=== PATIENT | female | born 1945 | race Caucasian/White ===

== ENCOUNTER 2017-01-30 17:30 | Inpatient (IN) | payer MEDICARE, OTHER ==
[~2017-01-30] VITALS: Ht 154.9 cm; Wt 78.4 kg
[2017-01-30] MEDS ORDERED: ASPIRIN 325 MG TAB PO STA (17:55)
[2017-01-30] MEDS ORDERED: SOD CHLORIDE 0.9% 500 ML IV STA (17:55)
--- NOTE | 2017-01-30 17:57 | ERD ---
ER Documentation Chief Complaint Chief Complaint chest pain x 2 days, cardiac hx HPI This 71-year-old female comes in for sharp and pressure-like substernal nonradiating chest pain, shortness of breath palpitations for the last 2 days. She is feeling worse and worse and getting lightheadedness and weakness now. Has nausea but denies vomiting. Denies fevers and chills. ROS All systems reviewed and are negative except as per history of present illness. Allergies Allergies: Coded Allergies: warfarin (Verified Allergy, Intermediate, RASH, 01/30/17) Physical Exam Vitals Vital Signs Date Time Temp Pulse Resp B/P Pulse Ox O2 Delivery O2 Flow Rate FiO2 01/30/17 18:30 67 16 142/63 97 Room Air 01/30/17 17:33 98.6 78 18 191/91 95 Physical Exam Const: [] Moderate distress Head: Atraumatic Eyes: Normal Conjunctiva ENT: Normal External Ears, Nose and Mouth. Neck: Full range of motion..~ No meningismus. Resp: Decreased bibasilar breath sounds with mild rales in the left Cardio: Irregular tachycardia, no murmurs Abd: Soft, non tender, non distended. Normal bowel sounds Skin: No petechiae or rashes Back: No midline or flank tenderness Ext: No cyanosis, or edema Neur: Awake and alert and oriented 3, no focal deficits Psych: Normal Mood and Affect Result Diagram: 01/30/17181401/30/171814 Results 24 hrs Laboratory Tests Test 01/30/17 18:15 White Blood Count 8.910^3/ul Red Blood Count 4.3610^6/ul Hemoglobin 11.4g/dl Hematocrit 34.7% Mean Corpuscular Volume 79.6fl Mean Corpuscular Hemoglobin 26.1pg Mean Corpuscular Hemoglobin Concent 32.9g/dl Red Cell Distribution Width 13.7% Platelet Count 11213^3/UL Mean Platelet Volume 11.3fl Neutrophils % 54.8% Lymphocytes % 33.0% Monocytes % 9.9% Eosinophils % 1.4% Basophils % 0.7% Nucleated Red Blood Cells % 0.0/100WBC Neutrophils # 4.910^3/ul Lymphocytes # 2.910^3/ul Monocytes # 0.910^3/ul Eosinophils # 0.110^3/ul Basophils # 0.110^3/ul Nucleated Red Blood Cells # 0.010^3/ul Sodium Level 140mmol/L Potassium Level 3.3mmol/L Chloride Level 107mmol/L Carbon Dioxide Level 23mmol/L Anion Gap 13 Blood Urea Nitrogen 12mg/dl Creatinine 0.65mg/dl Glucose Level 104mg/dl Calcium Level 9.5mg/dl Creatine Kinase 48IU/L Creatine Kinase Index 3.0 Creatinine Kinase MB (Mass) 1.43ng/ml Troponin I < 0.012ng/ml B-Type Natriuretic Peptide 4020PG/ML Current Medications Medications (Trade) Dose Ordered Sig/[place] Route PRN Reason Start Time Stop Time Status Last Admin Dose Admin Sodium Chloride (NS) 500 ml @ 500 mls/hr Q1H STAT IV 01/30/17 17:55 01/30/17 18:54 DC 01/30/17 18:23 Aspirin 325 mg 325 mg ONCE STAT PO 01/30/17 17:55 01/30/17 17:57 DC 01/30/17 18:21 Diltiazem HCl (Cardizem-D5W 125 Mg/125 ml Drip) 125 ml @ 5 mls/hr TITRATE IV 01/30/17 18:00 Diltiazem HCl (Cardizem Iv) 20 mg ONCE ONCE IV 01/30/17 18:00 01/30/17 18:01 DC 01/30/17 18:23 Ondansetron HCl (Zofran Inj) 4 mg ER BRIDGE PRN IV NAUSEA AND/OR VOMITING 01/30/17 20:00 01/31/17 19:59 Acetaminophen (Tylenol Tab) 650 mg ER BRIDGE PRN PO MILD PAIN/FEVER 01/30/17 20:00 01/31/17 19:59 Procedures/MDM A. fib with RVR and chest pain is 71-year-old female with multiple risk factors for acute coronary syndrome. Initial troponin is negative. She was given 305 mg aspirin as well as Cardizem bolus and Cardizem drip. Her rate is controlled. Also given 500 cc of IV fluid. Does have evidence of congestive heart failure with elevated BNP. Mild microcytic anemia and mild hypokalemia. Treated with a K-Dur tablet in the emergency room. Vital signs are currently stabilized patient is feeling better. Spoke with Dr. Heck will be admitting her to telemetry for further workup and monitoring. EKG interpretation: A. fib with RVR rate of 126, normal axis, ST depressions in leads V4 through V6 likely rate related versus ischemia. Abnormal EKG distribution center manager interpretation: Initial A. fib with RVR rate 120s-150s followed by rate controlled A. fib after Cardizem administration. No other arrhythmias Chest x-ray interpretation: Bilateral pleural effusions, engorgement of pulmonary vasculature consistent with CHF, no obvious infiltrates the disease would be difficult to assess through the pleural effusions, no pneumothorax, no fractures. Critical care time greater than 35 minutes: This includes treatment of unstable vital signs, A. fib with RVR with concomitant chest pain, careful fluid administration, use of Cardizem bolus and Cardizem drip, multiple visits patient 's bedside to reassess status, review of chart, discussion with patient and admitting doctor. This does not include any billable procedures Departure Diagnosis: Primary Impression: Chest pain Additional Impressions: Atrial fibrillation with RVR Congestive heart failure Microcytic anemia Respiratory distress Condition: Serious YOMI YAP DO Jan 30, 2017 17:57
[2017-01-30] MEDS ORDERED: DILTIAZEM 25 MG INJ IV ONE (18:00)
[2017-01-30 18:37] LABS: BASOPHIL # 0.1 10^3/ul (0.0-0.1); BASOPHILS % 0.7 % (0.0-2.0); EOSINOPHILS # 0.1 10^3/ul (0.0-0.5); EOSINOPHILS % 1.4 % (0.0-7.0); HEMATOCRIT 34.7 % (37.0-47.0); HEMOGLOBIN 11.4 g/dl (12.0-16.0); LYMPHOCYTES # 2.9 10^3/ul (0.8-2.9); MEAN CORPUSCULAR HEMOGLOBIN 26.1 pg (29.0-33.0); MEAN CORPUSCULAR HGB CONC 32.9 g/dl (32.0-37.0); MEAN CORPUSCULAR VOLUME 79.6 fl (82.0-101.0); MEAN PLATELET VOLUME 11.3 fl (7.4-10.4); MONOCYTE # 0.9 10^3/ul (0.3-0.9); MONOCYTES % 9.9 % (0.0-11.0); NEUTROPHIL # 4.9 10^3/ul (1.6-7.5); NEUTROPHILS % 54.8 % (39.0-77.0); PLATELET COUNT 247 10^3/UL (140-415); RED BLOOD COUNT 4.36 10^6/ul (4.20-5.40); RED CELL DISTRIBUTION WIDTH 13.7 % (11.5-14.5); WHITE BLOOD COUNT 8.9 10^3/ul (4.8-10.8)
[2017-01-30 18:55] LABS: CALCIUM 9.5 mg/dl (8.4-10.2); CREATINE KINASE 48 IU/L (23-200); CREATININE 0.65 mg/dl (0.44-1.00); POTASSIUM 3.3 mmol/L (3.5-5.1)
--- NOTE | 2017-01-30 19:09 | RADRPT ---
PROCEDURE: XR Chest. CLINICAL INDICATION: Chest Pain. TECHNIQUE: Single frontal view of the chest was obtained COMPARISON: None FINDINGS: Median sternotomy wires are present. Aortic calcifications are present. There is mild cardiomegaly. There are bilateral parenchymal opacities in the lungs. No pleural effusions or pneumothorax is seen . The osseous structures are unremarkable. IMPRESSION: 1. Bilateral symmetrical parenchymal opacities in the lungs likely representing mild pulmonary kacy a although infection cannot be excluded. RPTAT:AAJJ Physician Harpreet Date Time Electronically viewed and signed by Kathleen Reynolds Physician on 01/30/2017 19:09 /
[2017-01-30 19:12] LABS: TROPONIN-I 0.014 ng/ml (0.00-0.12)
[2017-01-30 19:13] LABS: CK-MB 1.43 ng/ml (0.0-2.4)
[2017-01-30 19:16] LABS: TROPONIN-I < 0.012 ng/ml (0.00-0.12)
[2017-01-30] MEDS ORDERED: ONDANSETRON 4 MG INJ IV PRN ×2 (20:00→23:00)
[2017-01-30] MEDS ORDERED: ACETAMINOPHEN 325 MG TAB PO PRN (20:00)
[2017-01-30] MEDS ORDERED: POTASSIUM CHLORIDE (SR) 20 MEQ TAB PO STA ×2 (20:33→23:32)
[2017-01-30 20:50] VITALS: BP 147/71; PULSE 83; RESP 20
[2017-01-30 21:06] VITALS: PULSE 100
[2017-01-30 21:42] LABS: INR 0.91; PROTIME 12.3 Sec (11.9-14.9)
[2017-01-30] MEDS ORDERED: METF500T4 PO (22:06)
[2017-01-30 22:18] VITALS: Ht 154.9 cm; Wt 78.4 kg
[2017-01-30] MEDS ORDERED: DOCUSATE SODIUM 100 MG CAP PO PRN (23:00)
[2017-01-30] MEDS ORDERED: NITROGLYCERIN (SL) 0.4 MG TAB SL PRN (23:00)
[2017-01-30] MEDS ORDERED: NACL 0.9% 3 ML SYG IV SCH (23:00)
[2017-01-30] MEDS ORDERED: BISACODYL (EC) 5 MG TAB PO PRN (23:00)
[2017-01-30] MEDS ORDERED: DILTIAZEM-D5W 125MG/125ML DRIP 125 ML IV SCH (23:30)
--- NOTE | 2017-01-30 23:37 | HP ---
Date/Time of Note Date/Time of Note DATE: 01/30/17 TIME: 23:37 Assessment/Plan VTE Prophylaxis VTE Prophylaxis Intervention: LMWH Lines/Catheters [facility] Saline Lock Urinary Cath still in place: No Assessment/Plan Chief Complaint/Hosp Course This is a 71 year female being admitted to the telemetry floor for: #1 A. fib with RVR: Patient did receive Cardizem in the ED and she is currently on a Cardizem drip. The current time will continue this to maintain heart rate between 70-90. Will trend cardiac enzymes. Will initiate the patient on Lovenox subcu every 12. Check an echocardiogram in a.m. Consult cardiology. Will check a TSH level. #2 elevated BNP: BNP was in the 1999. She does have signs of vascular congestion on her chest x-ray. At the current time will provide her Lasix 40 mg IV 1. Will check an echocardiogram. Will consult cardiology. #3 coronary artery disease: Patient has a history of CABG. patient does not recall her home medications at this time. Will likely need to initiate aspirin/ beta-gonzalo and possibly WENDY depending on her ejection fraction. Will consult cardiology. Will check a lipid panel. #4 diabetes mellitus: We will check a hemoglobin A1c. Patient says she is only on metformin. Will cut the current time put her on insulin sliding scale. Diabetic diet. #5 hypertension: Again she does not recall her home medications. At the current time we will continue monitor blood pressures. Initiate as needed hydralazine. #6 hyperlipidemia: We will check a lipid panel, and confirm her home medications. #7 DVT GI prophylaxis: Lovenox, no GI prophylaxis indicated Further treatment strategy will be implemented as per the clinical course Will need to confirm patient's home medications with her in the a.m. Problems: HPI/ROS Admit Date/Time Admit Date/Time Jan 30, 2017 at 19:42 Hx of Present Illness chief complaint: Chest pain, palpitations this 71-year-old female comes in for sharp and pressure-like substernal nonradiating chest pain, shortness of breath palpitations for the last 2 days. She is feeling worse and worse and getting lightheadedness and weakness now. Has nausea but denies vomiting. Denies fevers and chills. He states that her pain got worse today and it was 10 out of 10 will come and go. Allergies: Coumadin Medications: See APR ROS Const: As per HPI Eyes : No pain discharge or redness or change in visual acuity ENT: No pain, sore throat, congestion, congestion, dysphagia or discharge Respiratory: As per HPI Cardiovascular: As per HPI GI : no change in appetite, abdominal pain, nausea, vomiting, diarrhea, constipation, or change in the color his stool Genitourinary: No dysuria, hematuria, flank pain , discharge or CVA tenderness Musculoskeletal: No joint pain, back pain, neck pain, restricted range of motion in neck or joints Skin: No rash, bruising or hives Neuro: No headache, dizziness, syncope, seizure, focal weakness Endocrine: No polyuria, polydipsia, temperature intolerance Psych: No hallucination, depression, anxiety or suicidal ideation PMH/Family/Social Past Medical History Coronary disease, diabetes mellitus, hypertension, hyperlipidemia, Past Surgical History cabg 2013 Family History Significant Family History: no pertinent family hx Social History Alcohol Use: none Smoking Status: Never smoker Drug Use: none Exam/Review of Systems Vital Signs Vitals Vital Signs Date Time Temp Pulse Resp B/P Pulse Ox O2 Delivery O2 Flow Rate FiO2 01/30/17 21:57 3.0 01/30/17 21:06 100 01/30/17 20:33 16 122/56 96 Room Air 01/30/17 17:33 98.6 Exam Exam General: She is lying in bed she does not appear in any acute distress. Patient is very anxious and very inquisitive, I did explain to her regarding her condition multiple times. HEENT: Atraumatic, normocephalic. The pupils are equal, round and reactive. Extraocular motor are intact Neck: Supple with full range of motion. No rigidity or meningismus Chest: Nontender Lungs: Coarse breath sounds bilaterally, mild rails Heart: Normal S1-S2, Regular rhythm and rate. Grade 4 out of 6 systolic murmur Abdomen: Soft , nontender, nondistended , bowel sounds are present. No guarding no rebound tenderness , No masses or organomegaly. No costovertebral temporal angle mass Extremities: Normal to inspection, no pitting edema noted, no cyanosis Neurologic: Normal mental status, speech normal, cranial nerves II through XII are intact, motor and sensory are intact, no focal weakness Additional Comments PROCEDURE: XR Chest. CLINICAL INDICATION: Chest Pain. TECHNIQUE: Single frontal view of the chest was obtained COMPARISON: None FINDINGS: Median sternotomy wires are present. Aortic calcifications are present. There is mild cardiomegaly. There are bilateral parenchymal opacities in the lungs. No pleural effusions or pneumothorax is seen. The osseous structures are unremarkable. IMPRESSION: 1. Bilateral symmetrical parenchymal opacities in the lungs likely representing mild pulmonary edema although infection cannot be excluded. RPTAT:AAJJ Kathleen Reynolds Physician Date Time Electronically viewed and signed by Kathleen Reynolds Physician on 01/30/2017 19:09 QL/ CC: YOMI YAP DO EKG interpretation: A. fib with RVR rate of 126, normal axis, ST depressions in leads V4 through V6 likely rate related versus ischemia. Above as per ed physician documentation Labs Result Diagram: 01/30/17 1815 01/30/17 1815 Medications Medications Current Medications Diltiazem HCl (Cardizem-D5W 125 Mg/125 ml Drip) 125 ml @ 5 mls/hr TITRATE IV ; Start 01/30/17 at 18:00 Ondansetron HCl (Zofran Inj) 4 mg Q6H PRN IV NAUSEA AND/OR VOMITING; Start at 23:00 Nitroglycerin (Nitroglycerin (Sl Tab) 0.4 Mg) 1 tab Q5M PRN SL CHEST PAIN; Start 01/30/17 at 23:00 Acetaminophen (Tylenol Tab) 650 mg Q6H PRN PO PAIN LEVEL 1-3 OR FEVER; Start 01/30/17 at 23:00 Docusate Sodium (Colace) 100 mg Q12H PRN PO CONSTIPATION; Start 01/30/17 at 23 :00 Bisacodyl 5 mg 5 mg DAILY PRN PO CONSTIPATION; Start 01/30/17 at 23:00 Diltiazem HCl (Cardizem-D5W 125 Mg/125 ml Drip) 125 ml @ 5 mls/hr TITRATE IV ; Start 01/30/17 at 23:30; Status UNV Furosemide (Lasix) 40 mg DAILY IV ; Start 01/31/17 at 09:00; Status UNV KATT BOYLE Jan 30, 2017 23:37
[2017-01-30 23:53] VITALS: BP 117/58; RESP 20
[2017-01-31] VITALS (15 sets, daily range): BP systolic 110–181; BP diastolic 52–94; PULSE 60–180; RESP 18–20
[2017-01-31] MEDS ORDERED: FUROSEMIDE 40 MG INJ IV STA (00:22)
[2017-01-31] MEDS: ENOXAPARIN 80 MG/0.8 ML SYG SC SCH ×3 (04:01→21:00)
[2017-01-31] MEDS: GUAIFENESIN/DM 5ML CUP PO PRN ×3 (05:07→21:17)
[2017-01-31 06:49] LABS: BASOPHIL # 0.1 10^3/ul (0.0-0.1); BASOPHILS % 0.8 % (0.0-2.0); EOSINOPHILS # 0.2 10^3/ul (0.0-0.5); HEMATOCRIT 34.8 % (37.0-47.0); HEMOGLOBIN 11.3 g/dl (12.0-16.0); LYMPHOCYTES # 2.6 10^3/ul (0.8-2.9); LYMPHOCYTES % 32.3 % (15.0-51.0); MEAN CORPUSCULAR HEMOGLOBIN 26.2 pg (29.0-33.0); MEAN CORPUSCULAR HGB CONC 32.5 g/dl (32.0-37.0); MEAN CORPUSCULAR VOLUME 80.6 fl (82.0-101.0); MEAN PLATELET VOLUME 11.5 fl (7.4-10.4); MONOCYTE # 0.8 10^3/ul (0.3-0.9); MONOCYTES % 10.6 % (0.0-11.0); NEUTROPHIL # 4.3 10^3/ul (1.6-7.5); NEUTROPHILS % 54.2 % (39.0-77.0); PLATELET COUNT 254 10^3/UL (140-415); RED BLOOD COUNT 4.32 10^6/ul (4.20-5.40); RED CELL DISTRIBUTION WIDTH 13.9 % (11.5-14.5); WHITE BLOOD COUNT 7.9 10^3/ul (4.8-10.8)
[2017-01-31 07:11] LABS: ALANINE AMINOTRANSFERASE 32 IU/L (13-69); ALBUMIN 3.2 g/dl (3.3-4.9); ALKALINE PHOSPHATASE 78 IU/L (42-121); ANION GAP 13 (8-16); ASPARTATE AMINO TRANSFERASE 18 IU/L (15-46); BILIRUBIN,INDIRECT 1.3 mg/dl (0-1.1); BILIRUBIN,TOTAL 1.3 mg/dl (0.2-1.3); BLOOD UREA NITROGEN 12 mg/dl (7-20); CALCIUM 9.8 mg/dl (8.4-10.2); CARBON DIOXIDE 27 mmol/L (21-31); CHLORIDE 107 mmol/L (97-110); CHOL/HDL RATIO 3.4 RATIO; CHOLESTEROL 143 mg/dl (100-200); CREATININE 0.63 mg/dl (0.44-1.00); GLUCOSE 118 mg/dl (70-220); HDL CHOLESTEROL 41 mg/dl (33-92); SODIUM 143 mmol/L (135-144); TOTAL PROTEIN 6.4 g/dl (6.1-8.1); TRIGLYCERIDES 124 mg/dl (0-149)
[2017-01-31 07:44] LABS: CK-MB 1.19 ng/ml (0.0-2.4); TROPONIN-I 0.013 ng/ml (0.00-0.12)
[2017-01-31 08:12] LABS: THYROID STIMULATING HORMONE < 0.015 MIU/L (0.465-4.680)
[2017-01-31] MEDS: DILTIAZEM-D5W 125MG/125ML DRIP 125 ML IV SCH ×2 (09:04→21:09)
[2017-01-31] MEDS: FUROSEMIDE 40 MG INJ IV SCH (09:04)
[2017-01-31] MEDS: ACETAMINOPHEN 325 MG TAB PO PRN (09:25)
[2017-01-31] MEDS ORDERED: DIGOXIN 500 MCG INJ IV ONE (15:00)
--- NOTE | 2017-01-31 15:16 | RADRPT ---
Echocardiogram Report Patient Name: VIRGIE CAST Gender: Female Date: 1945 Study Date: 31-Jan-2017 Mastercam Programmer: James Diaz [facility] Location: [id number] Ref. Physician: KATT BOYLE Quality: Technically Difficult Study Procedures: Transthoracic echocardiogram with complete 2D, M-Mode, and doppler examination. Indications: Chest Pain. 2D/M Mode Doppler Measurement Value Normal Ranges Measurement Value Normal Ranges LVIDd 2D 2.1 3.5 - 5.6 cm BETY Vmax 0.9 cm2 LVIDs 2D 1.7 2.1 - 4.1 cm BETY VTI 0.9 cm2 LVPWd 2D 1.6 0.6 - 1.1 cm AV Mean Lisandro 2.9 m/sec IVSd 2D 1.7 0.6 - 1.1 cm AV Mean PG 38.7 mmHg AoR Diam 2D 2.4 2.0 - 3.7 cm AV Peak Lisandro 4.0 m/sec EDV 2D 13.6 cm3 AV Peak PG 63.6 mmHg ESV 2D 4.9 cm3 AV VTI 72.8 cm LA Dimen 2D 3.6 2.3 - 4.0 cm LVOT Mean Lisandro 0.8 m/sec LVOT Diam 1.9 cm LVOT Mean PG 3.5 mmHg LVOT Peak Lisandro 1.2 m/sec LVOT Peak PG 5.9 mmHg LVOT VTI 25.5 cm TR Peak Lisandro 3.4 m/sec TR Peak PG 47.6 mmHg RVSP 51.0 mmHg Findings Left Ventricle: Normal left ventricular cavity size. Severe concentric left ventricular hypertrophy. Mild global left ventricular systolic dysfunction. Ejection fraction is visually estimated at 4550 %. Abnormal Diastolic Function. Right Ventricle: Normal right ventricular size. Normal right ventricular systolic function. Left Atrium: The left atrium is normal in size. Right Atrium: The right atrium is normal in size. Mitral Valve: Mild mitral leaflet calcification. Mild mitral annular calcification. Trace mitral regurgitation. Aortic Valve: Moderate to severe aortic stenosis. Aortic valve Max velocity 3.99 m/sec. Max PG 63.60 mmHg. Mean PG 38.70 mmHg. Aortic valve area 1.00 cm2. Aortic cusps appear severely calcified. Tricuspid Valve: Normal appearance of the tricuspid valve. Estimated peak PA systolic pressure 51 mmHg. There is mild tricuspid regurgitation. Pulmonic Valve: Normal pulmonic valve appearance. Pericardium: Normal pericardium with no significant pericardial effusion. Aorta: Normal aortic root. IVC: Normal size and normal respiratory collapse consistent with normal right atrial pressure. Conclusions 1.Normal left ventricular cavity size. Severe concentric left ventricular hypertrophy. Mild global left ventricular systolic dysfunction. Ejection fraction is visually estimated at 45-50 %. Abnormal Diastolic Function. 2.Mild mitral leaflet calcification. Mild mitral annular calcification. Trace mitral regurgitation. 3.Moderate to severe aortic stenosis. Aortic valve Max velocity 3.99 m/sec. Max PG 63.60 mmHg. Mean PG 38.70 mmHg. Aortic valve area 1.00 cm2. Aortic cusps appear severely calcified. 4.Normal appearance of the tricuspid valve. Estimated peak PA systolic pressure 51 mmHg. There is mild tricuspid regurgitation. Electronically Signed By: Richard Brown 31-Jan-2017 15:16:32 -0800 Patient Name: VIRGIE CAST Study Date: 31-Jan-2017 [id number]
[2017-01-31] MEDS: PANTOPRAZOLE (EC) 40 MG TAB PO SCH (15:48)
--- NOTE | 2017-01-31 15:56 | PN ---
Date/Time of Note Date/Time of Note DATE: 01/31/17 TIME: 15:47 Assessment/Plan VTE Prophylaxis VTE Prophylaxis Intervention: LMWH Lines/Catheters IV [facility] Peripheral IV Urinary Cath still in place: No Assessment/Plan Chief Complaint/Hosp Course #1 A. fib with RVR: Continue Cardizem drip Continue therapeutic Lovenox Cardiology consultation, follow-up echo and thyroid panel #2 Pulmonary edema Follow-up on echo Continue Lasix #3 Coronary artery disease with history of CABG Cardiology consultation Continue beta-gonzalo and Lovenox for now #4 Diabetes A1c at 5.7 Continue sliding scale #5 hypertension Patient does not recall home BP medications Continue beta-gonzalo and Cardizem drip at this time #6 hyperlipidemia Check a lipid panel, and confirm her home medications. #7 DVT GI prophylaxis: Lovenox, no GI prophylaxis indicated Problems: Subjective 24 Hr Interval Summary Constitutional: no complaints Exam/Review of Systems Vital Signs Vitals Vital Signs Date Time Temp Pulse Resp B/P Pulse Ox O2 Delivery O2 Flow Rate FiO2 01/31/17 12:00 98 01/31/17 11:42 97.9 20 135/63 96 01/31/17 08:25 Nasal Cannula 2.0 Exam Constitutional: alert, oriented Respiratory: clear to auscultation Cardiovascular: irregular rhythm Gastrointestinal: soft, No distended Musculoskeletal: nl extremities to inspection Results Result Diagram: 01/31/17 0602 01/31/17 0602 Results 24 hrs Laboratory Tests Test 01/30/17 18:15 01/31/17 06:02 01/31/17 10:00 White Blood Count 8.9 7.9 Red Blood Count 4.36 4.32 Hemoglobin 11.4 L 11.3 L Hematocrit 34.7 L 34.8 L Mean Corpuscular Volume 79.6 L 80.6 L Mean Corpuscular Hemoglobin 26.1 L 26.2 L Mean Corpuscular Hemoglobin Concent 32.9 32.5 Red Cell Distribution Width 13.7 13.9 Platelet Count 247 254 Mean Platelet Volume 11.3 H 11.5 H Neutrophils % 54.8 54.2 Lymphocytes % 33.0 32.3 Monocytes % 9.9 10.6 Eosinophils % 1.4 2.0 Basophils % 0.7 0.8 Nucleated Red Blood Cells % 0.0 0.0 Neutrophils # 4.9 4.3 Lymphocytes # 2.9 2.6 Monocytes # 0.9 0.8 Eosinophils # 0.1 0.2 Basophils # 0.1 0.1 Nucleated Red Blood Cells # 0.0 0.0 Prothrombin Time 12.3 Prothrombin Time Ratio 1.0 INR International Normalized Ratio 0.91 Activated Partial Thromboplast Time 35.0 Sodium Level 140 143 Potassium Level 3.3 L 4.0 Chloride Level 107 107 Carbon Dioxide Level 23 27 Anion Gap 13 13 Blood Urea Nitrogen 12 12 Creatinine 0.65 0.63 Glucose Level 104 118 Calcium Level 9.5 9.8 Creatine Kinase 48 36 Creatine Kinase Index 3.0 3.3 Creatinine Kinase MB (Mass) 1.43 1.19 Troponin I < 0.012 0.013 B-Type Natriuretic Peptide 4020 H Hemoglobin A1c 5.7 Magnesium Level 1.7 Total Bilirubin 1.3 Direct Bilirubin 0.00 Indirect Bilirubin 1.3 H Aspartate Amino Transf (AST/SGOT) 18 Alanine Aminotransferase (ALT/SGPT) 32 Alkaline Phosphatase 78 Total Protein 6.4 Albumin 3.2 L Globulin 3.20 Albumin/Globulin Ratio 1.00 Triglycerides Level 124 Cholesterol Level 143 LDL Cholesterol, Calculated 77 HDL Cholesterol 41 Cholesterol/HDL Ratio 3.4 Thyroid Stimulating Hormone (TSH) < 0.015 L Free Thyroxine 4.42 H Free Triiodothyronine (T3) pg/mL 12.30 H Medications Medications Current Medications Diltiazem HCl (Cardizem-D5W 125 Mg/125 ml Drip) 125 ml @ 5 mls/hr TITRATE IV Last administered on 01/31/17 09:04; Admin Dose 5 MLS/HR; Start 01/30/17 at 18:00 Ondansetron HCl (Zofran Inj) 4 mg Q6H PRN IV NAUSEA AND/OR VOMITING; Start at 23:00 Nitroglycerin (Nitroglycerin (Sl Tab) 0.4 Mg) 1 tab Q5M PRN SL CHEST PAIN; Start 01/30/17 at 23:00 Acetaminophen (Tylenol Tab) 650 mg Q6H PRN PO PAIN LEVEL 1-3 OR FEVER Last administered on 01/31/17 09:25; Admin Dose 650 MG; Start 01/30/17 at 23:00 Docusate Sodium (Colace) 100 mg Q12H PRN PO CONSTIPATION Last administered on 01/31/17 13:20; Admin Dose 100 MG; Start 01/30/17 at 23:00 Bisacodyl 5 mg 5 mg DAILY PRN PO CONSTIPATION; Start 01/30/17 at 23:00 Diltiazem HCl (Cardizem-D5W 125 Mg/125 ml Drip) 125 ml @ 5 mls/hr TITRATE IV ; Start 01/30/17 at 23:30 Furosemide (Lasix) 40 mg DAILY IV Last administered on 01/31/17 09:04; Admin Dose 40 MG; Start 01/31/17 at 09:00 Guaifenesin/ Dextromethorphan (Robitussin Dm Liquid Cup) 15 ml Q4H PRN PO COUGH Last administered on 01/31/17 09:25; Admin Dose 15 ML; Start 01/31/17 at 01:30 Enoxaparin Sodium (Lovenox) 80 mg Q12 SC Last administered on 01/31/17 13:06 ; Admin Dose 80 MG; Start 01/31/17 at 04:01 Metoprolol Tartrate (Lopressor) 50 mg BID PO ; Start 01/31/17 at 21:00 Pantoprazole (Protonix Tab) 40 mg DAILY@06 PO ; Start 01/31/17 at 15:30 CARLOS SUAREZ Jan 31, 2017 15:56
[2017-01-31] MEDS ORDERED: MAGNESIUM SULFATE 3 GM in DEXTROSE 5% 100 ML IVPB ONE (17:00)
--- NOTE | 2017-01-31 19:50 | CONS ---
DATE OF ADMISSION: 01/30/2017 DATE OF CONSULTATION: 01/31/2017 CARDIAC CONSULTATION DATE OF CONSULTATION: 01/31/2017 REASON FOR CONSULTATION: Atrial fibrillation/atrial flutter with rapid ventricular response. REQUESTING PHYSICIAN: Dr. Boyle from the hospitalist service. HISTORY OF PRESENT ILLNESS: Ms. Carney is a very pleasant 71-year-old female with a history of cor onary artery disease, status post coronary artery bypass grafting in 2013, diabetes mellitus, hypert ension, dyslipidemia who states that she presented with complaints of palpitations, shortness of alphonse ath and associated chest pain ongoing for approximately 2 days. Upon arrival, temperature of 98.6, blood pressure 191/91, pulse 78, respiratory rate 18, saturating 95%. The patient's labs revealed a white count of 8.9, hemoglobin 11.4, platelet count of 247, sodium of 140, potassium 3.3, creatini ne 1.65, BUN 12, BNP of 4020, troponin negative, INR of 0.91. Patient underwent a chest x-ray revea ling bilateral symmetrical parenchymal opacities in the lungs, likely representing mild pulmonary ed flora. Patient's electrocardiogram revealed atrial fibrillation with rapid ventricular response of 12 6 with left ventricular hypertrophy voltage criteria and associated ST depressions and T-wave invers ions in the inferior and lateral leads. The patient subsequently was admitted to the floor, and sin ce admit to the floor, he has been started on Lovenox, gentle Lasix diuresis, on a diltiazem drip. No other rate controlling agents have been started on this patient at this time. PAST MEDICAL HISTORY: As above in HPI. MEDICATIONS CURRENTLY IN HOSPITAL: Lasix 40 mg daily, Lovenox 80 mg subQ q. 12, diltiazem IV, Zofra n p.r.n., sublingual nitroglycerin p.r.n., Tylenol p.r.n., Colace p.r.n., Dulcolax p.r.n. ALLERGIES: WARFARIN. SOCIAL HISTORY: No tobacco, ETOH or illicit drug use. FAMILY HISTORY: No history of sudden cardiac or early CAD. REVIEW OF SYSTEMS: As above in HPI. CONSTITUTIONAL: No fevers, chills. PULMONARY: Mild shortness of breath. CARDIOVASCULAR: No current chest pain. GASTROINTESTINAL: No vomiting. GENITOURINARY: No hematuria. MUSCULOSKELETAL: Degenerative joint disease. PSYCHIATRIC: The patient denies depression. NEUROLOGIC: No documented history of CVA. PHYSICAL EXAMINATION VITAL SIGNS: Temperature of 97.9, blood pressure 135/63, pulse 90, respiratory rate 20, saturating 96%. GENERAL: The patient is alert, awake, complaining of palpitations and chest pain. NECK: JVP approximately 8 cm of water. CHEST: Fair air movement throughout. HEART: Tachycardic, irregularly irregular, I/ systolic murmur. ABDOMEN: Positive bowel sounds, soft. EXTREMITIES: No edema, 1+ pulses bilaterally, posterior tibial. LABORATORIES: As above in HPI with most recent from today with white count 7.9, hemoglobin 11.3, pl atelet count of 254, sodium of 143, potassium 4.0, creatinine 0.6, BUN 12, TSH of less than 0.015, a nd free T4 of 4.42 consistent with a hyperthyroid state. IMAGING STUDIES: As above in HPI. No further imaging available for me to review at this time. IMPRESSION: 1. Atrial fibrillation/atrial flutter with rapid ventricular response. 2. Hypertension. 3. Abnormal electrocardiogram, assess for acute coronary syndrome. 4. Possible hyperthyroid state. 5. Congestive heart failure by chest x-ray, question systolic versus diastolic, likely [id number] onic. 6. Anemia. RECOMMENDATIONS: 1. At this time, would maintain the patient on telemetry monitoring to follow rhythm and rate contr ol closely. 2. Would start the patient on p.o. beta gonzalo and wean off the patient's diltiazem as tolerated t hereafter, give patient a dose of digoxin. 3. Continue the patient's gentle Lasix diuresis, following strict I's and O's during diuresis. 4. Will consider treatment for possible hyperthyroid state and likely its association with atrial f ibrillation. 5. Check a 2D echo to further assess the patient's ejection fraction, wall motion and any major siobhan ve abnormalities. 6. Check a fasting lipid panel for general risk stratification and initiate lipid-lowering medicati on as necessary. We will additionally continue the patient on Lovenox systemic anticoagulation at this time for elev ated CHADS-VASc score. Thank you for allowing me to take part in the care of this patient. I will continue to follow very closely with you. Further recommendations will be made as the patient progresses through inpatient hospital clinical course. Dictated By: PHILIPPE HIGGINBOTHAM/ARIE Conf#: [id number] DID#: [id number] CC: KATT BOYLE MD;*End*
[2017-01-31] MEDS: METOPROLOL 50 MG TAB PO SCH (21:11)
[2017-02-01] VITALS (13 sets, daily range): BP systolic 112–163; BP diastolic 54–70; PULSE 60–80; RESP 17–21
[2017-02-01] MEDS: PANTOPRAZOLE (EC) 40 MG TAB PO SCH (05:58)
[2017-02-01] MEDS: METOPROLOL 50 MG TAB PO SCH ×2 (08:09→22:18)
[2017-02-01] MEDS: FUROSEMIDE 40 MG INJ IV SCH (08:09)
[2017-02-01] MEDS: ACETAMINOPHEN 325 MG TAB PO PRN (08:09)
[2017-02-01] MEDS: ENOXAPARIN 80 MG/0.8 ML SYG SC SCH ×3 (08:10→22:16)
[2017-02-01 08:19] LABS: CALCIUM 9.9 mg/dl (8.4-10.2); CREATININE 0.62 mg/dl (0.44-1.00); PHOSPHORUS 4.1 mg/dl (2.5-4.9); POTASSIUM 4.3 mmol/L (3.5-5.1)
[2017-02-01] MEDS: GUAIFENESIN/DM 5ML CUP PO PRN (08:19)
--- NOTE | 2017-02-01 11:54 | CONS ---
Date/Time of Note Date/Time of Note DATE: 02/01/17 TIME: 11:51 Assessment/Plan Assessment/Plan Additional Assessment/Plan 1. At this time, would maintain the patient on telemetry monitoring to follow rhythm and rate control closely - will adjust Rx as needed. Rate now controlled. 2. Would start the patient on p.o. beta gonzalo and wean off the patient's diltiazem as tolerated thereafter, give patient a dose of digoxin. Will wean off dilt GTT as tolerated. 3. Continue the patient's gentle Lasix diuresis, following strict I's and O's during diuresis. Good urine output. 4. Will consider treatment for possible hyperthyroid state and likely its association with atrial fibrillation. 5. Check a 2D echo to further assess the patient's ejection fraction, wall motion and any major valve abnormalities. Awaiting study. 6. Check a fasting lipid panel for general risk stratification and initiate lipid-lowering medication as necessary. Consultation Date/Type/Reason Admit Date/Time Jan 30, 2017 at 19:42 Initial Consult Date 24 HR Interval Summary Free Text/Dictation Rate now controlled - converted to sinus, con't on metoprolol. ROS: No fever, no chills, no nausea, no vomiting, no diarrhea/constipation No recent weight changes No chest pain, no PND, no orthopnea, better SOB No dizziness, blurred vision No thirst, no heat or cold intolerance Exam/Review of Systems Vital Signs Vitals Vital Signs Date Time Temp Pulse Resp B/P Pulse Ox O2 Delivery O2 Flow Rate FiO2 02/01/17 08:03 98.1 73 18 133/60 97 01/31/17 08:25 Nasal Cannula 2.0 Intake and Output 01/31/17 01/31/17 02/01/17 15:00 23:00 07:00 Intake Total 625 ml 835 ml 700 ml Balance 625 ml 835 ml 700 ml Exam General: WN/WD/NAD, AOx 2-3 HEENT: Unicetric/atraumatic/EOMI (follow commands) NECK: JVD elevated, no thyromegaly Lymph: no lymphadenopathy HEART: regular with no S3, II/ systolic murmur at apex LUNGS: Coarse sounds ABD: soft, NT, ND, +BS : Intact Neuro: non focal SKIN: chronic changes EXT: trace edema Results Result Diagram: 01/31/17 0602 02/01/17 0712 Results 24 hrs Laboratory Tests Test 01/31/17 18:39 02/01/17 01:00 02/01/17 07:12 02/01/17 07:13 Troponin I 0.020 0.024 0.019 Sodium Level 140 Potassium Level 4.3 Chloride Level 106 Carbon Dioxide Level 25 Anion Gap 13 Blood Urea Nitrogen 20 Creatinine 0.62 Glucose Level 110 Calcium Level 9.9 Phosphorus Level 4.1 Magnesium Level 1.7 Medications Medications Current Medications Diltiazem HCl (Cardizem-D5W 125 Mg/125 ml Drip) 125 ml @ 5 mls/hr TITRATE IV Last administered on 01/31/17 21:09; Admin Dose 5 MLS/HR; Start 01/30/17 at 18:00 Ondansetron HCl (Zofran Inj) 4 mg Q6H PRN IV NAUSEA AND/OR VOMITING; Start at 23:00 Nitroglycerin (Nitroglycerin (Sl Tab) 0.4 Mg) 1 tab Q5M PRN SL CHEST PAIN; Start 01/30/17 at 23:00 Acetaminophen (Tylenol Tab) 650 mg Q6H PRN PO PAIN LEVEL 1-3 OR FEVER Last administered on 02/01/17 08:09; Admin Dose 650 MG; Start 01/30/17 at 23:00 Docusate Sodium (Colace) 100 mg Q12H PRN PO CONSTIPATION Last administered on 01/31/17 13:20; Admin Dose 100 MG; Start 01/30/17 at 23:00 Bisacodyl 5 mg 5 mg DAILY PRN PO CONSTIPATION; Start 01/30/17 at 23:00 Diltiazem HCl (Cardizem-D5W 125 Mg/125 ml Drip) 125 ml @ 5 mls/hr TITRATE IV ; Start 01/30/17 at 23:30 Furosemide (Lasix) 40 mg DAILY IV Last administered on 02/01/17 08:09; Admin Dose 40 MG; Start 01/31/17 at 09:00 Guaifenesin/ Dextromethorphan (Robitussin Dm Liquid Cup) 15 ml Q4H PRN PO COUGH Last administered on 02/01/17 08:19; Admin Dose 15 ML; Start 01/31/17 at 01:30 Enoxaparin Sodium (Lovenox) 80 mg Q12 SC Last administered on 02/01/17 08:10 ; Admin Dose 80 MG; Start 01/31/17 at 04:01 Metoprolol Tartrate (Lopressor) 50 mg BID PO Last administered on 02/01/17 08 :09; Admin Dose 50 MG; Start 01/31/17 at 21:00 Pantoprazole (Protonix Tab) 40 mg DAILY@06 PO Last administered on 02/01/17 05:58; Admin Dose 40 MG; Start 01/31/17 at 15:30 ASIYA NAQVI MD Feb 01, 2017 11:54
[2017-02-01] MEDS: GUAIFENESIN LA 600 MG TABSR PO SCH ×2 (14:25→22:14)
[2017-02-01] MEDS: HYDROCORTISONE 2.5% 30 GM RECT CR PR SCH ×2 (14:58→22:20)
[2017-02-01] MEDS ORDERED: MAGNESIUM SULFATE 2 GM/50 ML 50 ML IVPB ONE (16:00)
--- NOTE | 2017-02-01 16:00 | PN ---
Date/Time of Note Date/Time of Note DATE: 02/01/17 TIME: 15:53 Assessment/Plan VTE Prophylaxis VTE Prophylaxis Intervention: LMWH Lines/Catheters IV C[facility]ter Type [facility] Urinary Cath still in place: No Assessment/Plan Chief Complaint/Hosp Course #1 A. fib with RVR: Now converted to sinus Wean off Cardizem drip Continue beta-gonzalo Continue therapeutic Lovenox Cardiology consultation appreciated, echo shows EF of 45-50% Thyroid studies indicate hyperthyroidism, endocrinology consultation obtained #2 Pulmonary edema 2D echo shows an EF of 45-50% with abnormal diastolic function Continue Lasix Continue beta-gonzalo #3 Coronary artery disease with history of CABG Cardiology consultation Continue beta-gonzalo and Lovenox for now #4 Diabetes A1c at 5.7 Continue sliding scale #5 hypertension-currently stable Patient does not recall home BP medications Continue beta-gonzalo and Cardizem drip at this time #6 hyperlipidemia Check a lipid panel, and confirm her home medications #7 hemorrhoids Hydrocortisone #8 sinus congestion Start Mucinex DVT GI prophylaxis: Lovenox, no GI prophylaxis indicated Problems: Subjective 24 Hr Interval Summary Free Text/Dictation Patient reports hemorrhoid pain as well as sinus congestion Exam/Review of Systems Vital Signs Vitals Vital Signs Date Time Temp Pulse Resp B/P Pulse Ox O2 Delivery O2 Flow Rate FiO2 02/01/17 12:05 97.2 69 17 118/54 95 01/31/17 08:25 Nasal Cannula 2.0 Intake and Output 01/31/17 01/31/17 02/01/17 15:00 23:00 07:00 Intake Total 625 ml 835 ml 700 ml Balance 625 ml 835 ml 700 ml Exam Constitutional: alert, oriented Head: normocephalic Respiratory: clear to auscultation Cardiovascular: regular rate and rhythm Gastrointestinal: soft, No distended Musculoskeletal: nl extremities to inspection Results Result Diagram: 01/31/17 0602 02/01/17 0712 Results 24 hrs Laboratory Tests Test 01/31/17 18:39 02/01/17 01:00 02/01/17 07:12 02/01/17 07:13 Troponin I 0.020 0.024 0.019 Sodium Level 140 Potassium Level 4.3 Chloride Level 106 Carbon Dioxide Level 25 Anion Gap 13 Blood Urea Nitrogen 20 Creatinine 0.62 Glucose Level 110 Calcium Level 9.9 Phosphorus Level 4.1 Magnesium Level 1.7 Medications Medications Current Medications Diltiazem HCl (Cardizem-D5W 125 Mg/125 ml Drip) 125 ml @ 5 mls/hr TITRATE IV Last administered on 01/31/17 21:09; Admin Dose 5 MLS/HR; Start 01/30/17 at 18:00 Ondansetron HCl (Zofran Inj) 4 mg Q6H PRN IV NAUSEA AND/OR VOMITING; Start at 23:00 Nitroglycerin (Nitroglycerin (Sl Tab) 0.4 Mg) 1 tab Q5M PRN SL CHEST PAIN; Start 01/30/17 at 23:00 Acetaminophen (Tylenol Tab) 650 mg Q6H PRN PO PAIN LEVEL 1-3 OR FEVER Last administered on 02/01/17 08:09; Admin Dose 650 MG; Start 01/30/17 at 23:00 Docusate Sodium (Colace) 100 mg Q12H PRN PO CONSTIPATION Last administered on 01/31/17 13:20; Admin Dose 100 MG; Start 01/30/17 at 23:00 Bisacodyl 5 mg 5 mg DAILY PRN PO CONSTIPATION; Start 01/30/17 at 23:00 Diltiazem HCl (Cardizem-D5W 125 Mg/125 ml Drip) 125 ml @ 5 mls/hr TITRATE IV ; Start 01/30/17 at 23:30 Furosemide (Lasix) 40 mg DAILY IV Last administered on 02/01/17 08:09; Admin Dose 40 MG; Start 01/31/17 at 09:00 Guaifenesin/ Dextromethorphan (Robitussin Dm Liquid Cup) 15 ml Q4H PRN PO COUGH Last administered on 02/01/17 08:19; Admin Dose 15 ML; Start 01/31/17 at 01:30 Enoxaparin Sodium (Lovenox) 80 mg Q12 SC Last administered on 02/01/17 08:10 ; Admin Dose 80 MG; Start 01/31/17 at 04:01 Metoprolol Tartrate (Lopressor) 50 mg BID PO Last administered on 02/01/17 08 :09; Admin Dose 50 MG; Start 01/31/17 at 21:00 Pantoprazole (Protonix Tab) 40 mg DAILY@06 PO Last administered on 02/01/17 05:58; Admin Dose 40 MG; Start 01/31/17 at 15:30 Guaifenesin (Mucinex) 600 mg BID PO Last administered on 02/01/17 14:25; Admin Dose 600 MG; Start 02/01/17 at 13:00 Hydrocortisone (Proctozone-Hc) 1 applic BID HI Last administered on 02/01/17 14:58; Admin Dose 1 APPLIC; Start 02/01/17 at 13:00 CARLOS SUAREZ Feb 01, 2017 16:00
[2017-02-01] MEDS: METHIMAZOLE 5 MG TAB PO SCH (18:30)
--- NOTE | 2017-02-01 19:14 | CONS ---
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 Will attempt to differentiate between Graves disease and Toxic MultiNodular Goiter (TMNG) as etiology. Will order thyroid ultrasound and TPOAb and TSI. Will start methimazole 20 mg/d. Pt. should be discharged on methimazole and followed up in 6-8 weeks. Cont. metoprolol. Qualifiers: Qualified Code: E05.90 - Thyrotoxicosis without thyroid storm, unspecified thyrotoxicosis type (2) Type 2 diabetes mellitus without complications Status: Chronic Comment: Excellent glycemic control on her home regimen. Would continue this. Qualifiers: Qualified Code: E11.9 - Type 2 diabetes mellitus without complication, without long-term current use of insulin Consultation Date/Type/Reason Admit Date/Time Jan 30, 2017 at 19:42 Date of Consultation: Feb 01, 2017 Type of Consultation: Endocrinology Reason for Consultation A-fib w/ hyperthyroidism Referring Provider: CARLOS SUAREZ of Present Illness 71 y/o C F w/ h/o T2DM, HTN, hyperlipidemia, CAD s/p CABG, in [facility] until 2 days ago when she developed acute SOB and CALVO. (+) CP associated w/ inspiration. Came to [facility]. In the ER was found to be in A-fib w/ RVR. Pt. admitted. ECHO showed LV concentric hypertrophy and aortic stenosis. TSH was undetectable and FT4 and T3 were significantly elevated. Of note A1c was 5.7%. Endo consulted. Constitutional: improved, no complaints Eyes: no complaints ENT: no complaints Respiratory: cough, pain, pleuritic pain, shortness of breath Cardiovascular: chest pain, orthopenea, palpitations Gastrointestinal: no complaints Genitourinary: no complaints Musculoskeletal: back pain, bone/joint pain Skin: no complaints Neurologic: no complaints Endocrine: temp intolerance (heat) Past Medical History Medical History: coronary artery disease, diabetes, high cholesterol, hypertension Past Surgical History Past Surgical Hx: appendectomy, coronary bypass surgery Family History Significant Family History: heart disease, diabetes Social History b. [place], in [facility] since age 11, hs grad, ret'd seamstress and machine icer, longtime , no children Alcohol Use: none Smoking Status: Never smoker Drug Use: none Exam/Review of Systems Vital Signs Vitals Vital Signs Date Time Temp Pulse Resp B/P Pulse Ox O2 Delivery O2 Flow Rate FiO2 02/01/17 16:07 98.2 82 18 135/65 98 01/31/17 08:25 Nasal Cannula 2.0 Intake and Output 01/31/17 01/31/17 02/01/17 15:00 23:00 07:00 Intake Total 625 ml 835 ml 700 ml Balance 625 ml 835 ml 700 ml Exam Constitutional: alert, obese, oriented Psych: nl mood/affect, no complaints Eyes: EOMI, PERRL, nl conjunctiva, nl lids, nl sclera ENMT: mucosa pink and moist, nl external ears & nose Neck: non-tender, supple, No bruits (radiating murmur to B carotids), No masses, No thyromegaly Respiratory: clear to auscultation, normal air movement, No crackles/rales Cardiovascular: irregular rhythm, murmurs/extra sounds (loud, harsh systolic murmur), No edema, No regular rate and rhythm, No rub Gastrointestinal: bowel sounds, nl liver, spleen, non-tender, soft, No mass, No rebound or guarding Musculoskeletal: nl extremities to inspection Extremities: normal pulses, No clubbing, No cyanosis, No edema Neurological: [employer] II-XII intact, nl mental status, nl speech, nl strength Results Result Diagram: 01/31/17 0602 02/01/17 0712 Results 24 hrs Laboratory Tests Test 02/01/17 01:00 02/01/17 07:12 02/01/17 07:13 Troponin I 0.024 0.019 Sodium Level 140 Potassium Level 4.3 Chloride Level 106 Carbon Dioxide Level 25 Anion Gap 13 Blood Urea Nitrogen 20 Creatinine 0.62 Glucose Level 110 Calcium Level 9.9 Phosphorus Level 4.1 Magnesium Level 1.7 Medications Medications Current Medications Ondansetron HCl (Zofran Inj) 4 mg Q6H PRN IV NAUSEA AND/OR VOMITING; Start at 23:00 Nitroglycerin (Nitroglycerin (Sl Tab) 0.4 Mg) 1 tab Q5M PRN SL CHEST PAIN; Start 01/30/17 at 23:00 Acetaminophen (Tylenol Tab) 650 mg Q6H PRN PO PAIN LEVEL 1-3 OR FEVER Last administered on 02/01/17 08:09; Admin Dose 650 MG; Start 01/30/17 at 23:00 Docusate Sodium (Colace) 100 mg Q12H PRN PO CONSTIPATION Last administered on 01/31/17 13:20; Admin Dose 100 MG; Start 01/30/17 at 23:00 Bisacodyl 5 mg 5 mg DAILY PRN PO CONSTIPATION; Start 01/30/17 at 23:00 Diltiazem HCl (Cardizem-D5W 125 Mg/125 ml Drip) 125 ml @ 5 mls/hr TITRATE IV ; Start 01/30/17 at 23:30 Furosemide (Lasix) 40 mg DAILY IV Last administered on 02/01/17 08:09; Admin Dose 40 MG; Start 01/31/17 at 09:00 Guaifenesin/ Dextromethorphan (Robitussin Dm Liquid Cup) 15 ml Q4H PRN PO COUGH Last administered on 02/01/17 08:19; Admin Dose 15 ML; Start 01/31/17 at 01:30 Enoxaparin Sodium (Lovenox) 80 mg Q12 SC Last administered on 02/01/17 08:10 ; Admin Dose 80 MG; Start 01/31/17 at 04:01 Metoprolol Tartrate (Lopressor) 50 mg BID PO Last administered on 02/01/17 08 :09; Admin Dose 50 MG; Start 01/31/17 at 21:00 Pantoprazole (Protonix Tab) 40 mg DAILY@06 PO Last administered on 02/01/17 05:58; Admin Dose 40 MG; Start 01/31/17 at 15:30 Guaifenesin (Mucinex) 600 mg BID PO Last administered on 02/01/17 14:25; Admin Dose 600 MG; Start 02/01/17 at 13:00 Hydrocortisone (Proctozone-Hc) 1 applic BID [place] Last administered on 02/01/17 14:58; Admin Dose 1 APPLIC; Start 02/01/17 at 13:00 Methimazole (Tapazole) 20 mg DAILY PO ; Start 02/01/17 at 18:30 GEORGE GERBER MD Feb 01, 2017 19:14
[2017-02-02] VITALS (7 sets, daily range): BP systolic 130–148; BP diastolic 63–67; PULSE 70–96; RESP 17–20
--- NOTE | 2017-02-02 03:18 | RADRPT ---
PROCEDURE: US Thyroid. CLINICAL INDICATION: Thyrotoxicosis rule out nodular goiter versus heterogeneous consistent with t hyroiditis TECHNIQUE: Multiple sonographic images of the thyroid were obtained. Transverse and sagittal imagi ng of the gland and yogi-thyroidal tissues was performed with a high frequency linear array transduc er. Color interrogation was performed as well. The images were reviewed on a PACS workstation. COMPARISON: No prior studies are available for comparison. FINDINGS: Thyroid Size: Right lobe: 3.7 x 0.9 x 1.2 cm Left lobe: 3.1 x 0.9 x 1.6 cm Appearance: Echogenicity: Mild diffuse heterogeneity. Vascularity: normal Right thyroid nodules: None Left thyroid nodules: None Additional: Adenopathy: None Soft tissues: Normal IMPRESSION: Nonspecific mild diffuse heterogeneity of thyroid echotexture. No discrete thyroid nodule seen. TI-RADS 1. TI-RADS 1: Benign, <2% malignancy risk: No FNA TI-RADS 2: Not suspicious, <2% malignancy risk: No FNA TI-RADS 3: Mildly suspicious, 5% malignancy risk: FNA if ? 2.5 cm TI-RADS 4: Moderately suspicious, 5-20% malignancy risk: FNA if ? 1.5 cm TI-RADS 5: Highly suspicious, >20% malignancy risk: FNA if ? 1.0 cm RPTAT: HJES .Jose Elaine MD, MD Date Time Electronically viewed and signed by .Jose Elaine MD, on 02/02/2017 03:17 .S/
[2017-02-02] MEDS: PANTOPRAZOLE (EC) 40 MG TAB PO SCH (05:45)
[2017-02-02] MEDS: METHIMAZOLE 5 MG TAB PO SCH ×2 (05:47→08:38)
--- NOTE | 2017-02-02 07:17 | RADRPT ---
Vent Rate: 72 bpm RR Interval: 0 msec CO Interval: 162 msec QRS Duration: 100 msec QT Interval: 392 msec QTC Interval: 429 msec P-R-T Nebo: 57 - 70 - 172 degrees Normal sinus rhythm Possible Left atrial enlargement Left ventricular hypertrophy with repolarization abnormality Abnormal ECG Electronically Signed By: Francis Wild [id number]
[2017-02-02] MEDS: ENOXAPARIN 80 MG/0.8 ML SYG SC SCH (08:39)
[2017-02-02] MEDS: FUROSEMIDE 40 MG INJ IV SCH (08:40)
[2017-02-02] MEDS: GUAIFENESIN LA 600 MG TABSR PO SCH (08:40)
[2017-02-02] MEDS: METOPROLOL 50 MG TAB PO SCH (08:42)
[2017-02-02] MEDS: HYDROCORTISONE 2.5% 30 GM RECT CR PR SCH (08:54)
[2017-02-02 09:23] LABS: BASOPHIL # 0.1 10^3/ul (0.0-0.1); BASOPHILS % 0.8 % (0.0-2.0); EOSINOPHILS # 0.2 10^3/ul (0.0-0.5); EOSINOPHILS % 2.1 % (0.0-7.0); HEMOGLOBIN 11.8 g/dl (12.0-16.0); LYMPHOCYTES # 1.7 10^3/ul (0.8-2.9); LYMPHOCYTES % 23.1 % (15.0-51.0); MEAN CORPUSCULAR HGB CONC 32.8 g/dl (32.0-37.0); MEAN CORPUSCULAR VOLUME 79.5 fl (82.0-101.0); MONOCYTE # 0.8 10^3/ul (0.3-0.9); MONOCYTES % 10.5 % (0.0-11.0); NEUTROPHIL # 4.7 10^3/ul (1.6-7.5); NEUTROPHILS % 63.2 % (39.0-77.0); PLATELET COUNT 258 10^3/UL (140-415); RED BLOOD COUNT 4.53 10^6/ul (4.20-5.40); RED CELL DISTRIBUTION WIDTH 13.4 % (11.5-14.5); WHITE BLOOD COUNT 7.5 10^3/ul (4.8-10.8)
[2017-02-02 10:04] LABS: CALCIUM 9.6 mg/dl (8.4-10.2); CREATININE 0.62 mg/dl (0.44-1.00)
[2017-02-02] MEDS ORDERED: LISINOPRIL 10 MG TAB PO SCH (12:30)
[2017-02-02] MEDS ORDERED: LAS20 PO (12:39)
[2017-02-02] MEDS ORDERED: METO-429 PO (12:39)
[2017-02-02] MEDS ORDERED: LISI10TA2 PO (12:39)
[2017-02-02] MEDS ORDERED: APIX5TAB PO (12:39)
[2017-02-02] MEDS ORDERED: METH10TA5 PO (12:39)
--- NOTE | 2017-02-02 12:41 | PDOCDIS ---
Discharge Instructions CONDITION Patient Condition: Good HOME CARE INSTRUCTIONS: Diet Instructions: Reduced Sodium ACTIVITY: Activity Restrictions: No Restrictions FOLLOW UP/APPOINTMENTS Follow-up Plan F/U WITH YOUR PCP IN 1-[address] LYNN GERBER OF ENDOCRINOLOGY IN 6-8 WEEKS FOR MANAGEMENT OF HYPERTHYROIDISM CARLOS SUAREZ Feb 02, 2017 12:41
[2017-02-02] MEDS ORDERED: GUAI600T14 PO (12:49)
[2017-02-02] MEDS ORDERED: UDROBDM PO (12:49)
--- NOTE | 2017-02-02 15:37 | DS ---
Date/Time of Note Date/Time of Note DATE: 02/02/17 TIME: 15:20 Discharge Summary Admission/Discharge Info Admit Date/Time Jan 30, 2017 at 19:42 Discharge Date/Time February 02, 2017 Discharge Diagnosis #1 A. fib with RVR secondary to hypothyroidism and mild CHF: Now converted to sinus Status post Cardizem drip DC with beta-gonzalo and Eliquis Cardiology consultation appreciated, echo shows EF of 45-50% Thyroid studies indicate hyperthyroidism, endocrinology consultation obtained, patient to be discharged on methimazole Thyroid ultrasound shows no nodules, patient to follow-up with endocrinology in 6-8 weeks #2 Acute systolic and diastolic CHF exacerbation likely secondary to history of MS and/or prolonged hyperthyroidism 2D echo shows an EF of 45-50% with abnormal diastolic function DC with Lasix and beta-gonzalo #3 Coronary artery disease with history of CABG Cardiology consultation DC with beta-gonzalo and Eliquis for A. fib, patient told to stop home aspirin #4 Diabetes A1c at 5.7 Continue home metformin #5 hypertension-currently stable Patient to continue home lisinopril 10 mg daily, have also prescribed metoprolol Of note patient's home medications were never officially reconciled but she does state that she takes lisinopril 10 mg at home #6 hyperlipidemia Total cholesterol and LDL within appropriate range #7 hemorrhoids Status post hydrocortisone cream #8 sinus congestion DC with Mucinex Patient Condition: Good Hospital Course Patient is a 71-year-old female with history of coronary disease status post CABG, hypertension, dyslipidemia. Patient presents with A. fib with RVR, started on Cardizem and converted to sinus rhythm. Patient was seen by cardiology and 2D echo was done which showed an EF of 45 -50% with abnormal diastolic function. Patient was also found to have hyperthyroidism, was seen by endocrinology thyroid ultrasound showed no distinct nodule the patient was started on methimazole. Of note patient did also have pulmonary edema on arrival and was diuresed. Patient was stable for discharge with recommendation by endocrinology to continue methimazole and to follow-up in 6-8 weeks. Patient was told about her heart failure, she has no known history of heart failure in the past. Patient was told that she will be started on Eliquis for CVA prophylaxis. On the day of discharge patient's vitals, labs and physical exam are stable she no acute complaints and questions were answered. Home Meds Active Scripts Guaifenesin (Guaifenesin) 600 Mg Tablet.sa, 600 MG PO BID, #60 Prov:CARLOS SUAREZ 02/02/17 Guaifenesin-Dextromethorphan* (Robitussin* DM) 100MG/10MG/5ML Syrup, 15 ML PO Q4H Y for COUGH, #1 BOTTLE Prov:CARLOS SUAREZ 02/02/17 Lisinopril* (Lisinopril*) 10 Mg Tablet, 10 MG PO DAILY, #60 TAB Prov:CARLOS SUAREZ 02/02/17 Apixaban* (Eliquis*) 5 Mg Tablet, 5 MG PO BID, #60 TAB 3 Refills Prov:CARLOS SUAREZ 02/02/17 Furosemide (Lasix) 20 Mg Tab, 20 MG PO DAILY, #60 TAB Prov:CARLOS SUAREZ 02/02/17 Metoprolol Tartrate* (Lopressor*) 50 Mg Tab, 50 MG PO BID, #60 TAB 1 Refill Prov:CARLOS SUAREZ 02/02/17 Methimazole* (Methimazole*) 10 Mg Tablet, 20 MG PO DAILY, #90 TAB 1 Refill Prov:CARLOS SUAREZ 02/02/17 Reported Medications Metformin Hcl* (Metformin Hcl*) 500 Mg Tablet, 500 MG PO WITH BREAKFAST, #30 TAB 01/30/17 Follow-up Plan F/U WITH YOUR PCP IN 1-[address] LYNN GERBER OF ENDOCRINOLOGY IN 6-8 WEEKS FOR MANAGEMENT OF HYPERTHYROIDISM Primary Care Provider Warren Gonsalves Time spent on discharge: > 30 minutes CARLOS SUAREZ Feb 02, 2017 15:31
[2017-02-03 12:31] LABS: THYROID MICROSOMAL ANTIBODY 100 IU/mL (<9)
== END 2017-02-02 14:15 | disposition home or self-care (01) | DRG 308 ==
LOC: EDBD 17:30 → E/R 17:30 → MS4 19:42
PROVIDERS: ADMIT Family Medicine; ATTEND Family Medicine
DX: I48.91 Unspecified atrial fibrillation (principal); I50.43 Acute on chronic combined systolic (congestive) and diastolic (congestive) heart failure; E11.9 Type 2 diabetes mellitus without complications; E05.90 Thyrotoxicosis, unspecified without thyrotoxic crisis or storm; Z95.1 Presence of aortocoronary bypass graft; D50.9 Iron deficiency anemia, unspecified; I25.2 Old myocardial infarction; I11.0 Hypertensive heart disease with heart failure; I25.10 Atherosclerotic heart disease of native coronary artery without angina pectoris; K64.9 Unspecified hemorrhoids; I48.92 Unspecified atrial flutter; E78.00 Pure hypercholesterolemia, unspecified
CPT/HCPCS: 36415; 71010; 76536; 80048; 80053; 80061; 82550; 82553; 83036; 83735; 83880; 84100; 84439; 84443; 84481; 84484; 85025; 85610; 85730; 86376; 93005; 93306; 96374; J1940; J3475; J7040

== ENCOUNTER 2017-02-08 15:10 | Inpatient (IN) | END 2017-02-11 15:15 | disposition home health service (06) | DRG 373 ==

== ENCOUNTER 2017-03-21 13:13 | Observation (INO) | END 2017-03-23 15:50 | disposition home or self-care (01) ==

== ENCOUNTER 2017-06-02 12:04 | Inpatient (IN) | END 2017-06-06 14:32 | disposition left against medical advice (07) | DRG 286 ==